=== PATIENT | female | born 2000 | race Caucasian/White ===

== ENCOUNTER 2024-05-26 12:09 | Emergency (ER) | payer BC ==
[~2024-05-26] VITALS: Ht 157.5 cm; Wt 46.7 kg
[2024-05-26 12:14] VITALS: BP_SYST 145; PULSE 114; RESP 18; TEMP 97.8; O2SAT 98
[2024-05-26] MEDS ORDERED: DIPH25CA83 PO (12:49)
[2024-05-26 13:27] LABS: INFLUENZA TYPE A Negative (NEGATIVE); INFLUENZA TYPE B NEGATIVE (NEGATIVE)
[2024-05-26] MEDS ORDERED: PSEU30TA36 PO (13:32)
[2024-05-26 13:57] VITALS: BP_SYST 145; PULSE 114; RESP 18; TEMP 97.8; O2SAT 98
[2024-05-28] MEDS ORDERED: CLAR-61 PO (03:43)
== END 2024-05-26 14:01 | disposition home or self-care (01) ==
LOC: SED 12:09
DX: J40 Bronchitis, not specified as acute or chronic (principal); Z20.822 Contact with and (suspected) exposure to COVID-19; Z88.1 Allergy status to other antibiotic agents; Z79.899 Other long term (current) drug therapy; Z79.2 Long term (current) use of antibiotics
CPT/HCPCS: 36415; 71045; 99284